=== PATIENT | female | born 1965 | race Caucasian/White ===

== ENCOUNTER 2023-02-21 21:48 | Inpatient (IN) | payer OTHER ==
[2023-02-21 22:16] VITALS: BMI 19.3
[2023-02-21] MEDS ORDERED: IBUPROFEN 400 MG TABLET (FP) PO PRN (23:01)
[2023-02-21] MEDS ORDERED: MAG HYDROX/AL HYDROX/SIMETH 30 ML UNIT-DOSE CUP PO PRN (23:01)
[2023-02-21] MEDS ORDERED: ONDANSETRON *ODT* 4 MG TABLET SL PRN (23:01)
[2023-02-21] MEDS ORDERED: BENZOCAINE/MENTHOL (CHLORASEPTIC ) LOZENGE MM PRN (23:01)
[2023-02-21] MEDS ORDERED: IBUPROFEN 600 MG TABLET (FP) PO PRN (23:01)
[2023-02-21] MEDS ORDERED: NICOTINE 10 MG CARTRIDGE (INHALER) IH PRN (23:01)
[2023-02-21] MEDS ORDERED: BISMUTH SUBSALICYLATE 524 MG/30 ML PO PRN (23:01)
[2023-02-21] MEDS ORDERED: NALOXONE HCL 0.4 MG/ML VIAL IM PRN (23:01)
[2023-02-21] MEDS ORDERED: POLYETHYLENE GLYCOL (HEALTHYLAX) 3350 17 GM PACKET PO PRN (23:01)
[2023-02-21] MEDS ORDERED: ACETAMINOPHEN 325 MG TABLET (FP) PO PRN ×2 (23:01)
[2023-02-21] MEDS ORDERED: NALOXONE HCL (KLOXXADO) 8 MG SPRAY NS PRN (23:01)
[2023-02-21] MEDS ORDERED: MAGNESIUM HYDROX 2400MG/30ML ORAL SUSPENSION 30 ML CUP PO PRN (23:01)
[2023-02-21] MEDS ORDERED: LOPERAMIDE HCL 2 MG CAPSULE PO PRN (23:01)
[2023-02-21] MEDS ORDERED: guaiFENesin 600 MG TABLET.ER (FP) PO PRN (23:01)
[2023-02-21] MEDS ORDERED: P-EPHED 60MG/TRIPROLIDI 2.5MG TABLET PO PRN (23:01)
[2023-02-21] MEDS ORDERED: LIDOCAINE 5% TOPICAL PATCH TP PRN (23:01)
[2023-02-21] MEDS ORDERED: BENZONATATE 200 MG CAPSULE PO PRN (23:01)
[2023-02-21] MEDS ORDERED: DICYCLOMINE HCL 10 MG CAPSULE PO PRN (23:01)
[2023-02-22] MEDS: LIDOCAINE PATCH REMOVAL MC SCH ×2 (05:32→23:15)
[2023-02-22] MEDS ORDERED: PRENATAL VITAMINS W/ FOLIC ACID TABLET (FP) PO ONE (11:04)
[2023-02-22] MEDS: PRENATAL VITAMINS W/ FOLIC ACID TABLET (FP) PO SCH (11:04)
[2023-02-22 11:47] LABS: HEMOGLOBIN 10.2 GM/dL (10.7-15.3); MCHC 34.1 g/dl (32.0-36.0); MEAN PLT VOLUME 8.5 fl (7.5-11.1); PLATELET COUNT 222 10^3/uL (134-434); RBC 3.53 M/mm3 (3.60-5.2); RDW 18.4 % (11.6-15.6); WHITE BLOOD COUNT 6.7 K/mm3 (4.0-10.0)
[2023-02-22 11:52] LABS: CALCIUM 9.1 mg/dL (8.5-10.1)
[2023-02-22 11:53] LABS: ALBUMIN 3.3 g/dl (3.4-5.0); BLOOD UREA NITROGEN 33.9 mg/dL (7-18)
[2023-02-22 11:56] LABS: CREATININE 0.9 mg/dL (0.55-1.3)
[2023-02-22 11:57] LABS: BILIRUBIN,TOTAL 1.6 mg/dL (0.2-1)
[2023-02-22 11:58] LABS: TOT PROT 6.4 g/dl (6.4-8.2)
[2023-02-22] MEDS: MELATONIN 5 MG TABLETS PO PRN (23:14)
[2023-02-22] MEDS: THIAMINE HCL 100 MG TABLET (FP) PO SCH (23:14)
[2023-02-23] MEDS: FERROUS SO4 325 MG TABLET (FP) PO SCH (07:04)
[2023-02-23] MEDS: PRENATAL VITAMINS W/ FOLIC ACID TABLET (FP) PO SCH (10:37)
[2023-02-23] MEDS ORDERED: cloNIDine HCL 0.1 MG TABLET PO PRN (14:09)
[2023-02-23] MEDS ORDERED: methaDONE HCL 10 MG TABLET (FOR DETOX USE ONLY) PO ONE (14:11)
[2023-02-23] MEDS: NICOTINE POLACRILEX 2 MG GUM BUC PRN (19:43)
[2023-02-23] MEDS: THIAMINE HCL 100 MG TABLET (FP) PO SCH (22:39)
[2023-02-23] MEDS: MELATONIN 5 MG TABLETS PO PRN (22:39)
[2023-02-23] MEDS: LIDOCAINE PATCH REMOVAL MC SCH (22:39)
[2023-02-24] MEDS: FERROUS SO4 325 MG TABLET (FP) PO SCH (07:19)
[2023-02-24] MEDS: PRENATAL VITAMINS W/ FOLIC ACID TABLET (FP) PO SCH (09:48)
[2023-02-24] MEDS: THIAMINE HCL 100 MG TABLET (FP) PO SCH (22:32)
[2023-02-24] MEDS: MELATONIN 5 MG TABLETS PO PRN (22:32)
[2023-02-24] MEDS: LIDOCAINE PATCH REMOVAL MC SCH (22:33)
[2023-02-25] MEDS: FERROUS SO4 325 MG TABLET (FP) PO SCH (07:01)
[2023-02-25] MEDS ORDERED: methaDONE HCL 10 MG TABLET (FOR DETOX USE ONLY) PO ONE (10:00)
[2023-02-25] MEDS: PRENATAL VITAMINS W/ FOLIC ACID TABLET (FP) PO SCH (10:37)
[2023-02-25] MEDS: THIAMINE HCL 100 MG TABLET (FP) PO SCH (22:51)
[2023-02-25] MEDS: MELATONIN 5 MG TABLETS PO PRN (22:52)
[2023-02-25] MEDS: LIDOCAINE PATCH REMOVAL MC SCH (22:53)
[2023-02-26] MEDS: FERROUS SO4 325 MG TABLET (FP) PO SCH (07:12)
[2023-02-26] MEDS: PRENATAL VITAMINS W/ FOLIC ACID TABLET (FP) PO SCH (09:07)
[2023-02-26] MEDS: NICOTINE POLACRILEX 2 MG GUM BUC PRN (09:10)
[2023-02-26 09:38] VITALS: BP 124/77; PULSE 78; RESP 16; TEMP 97.8
== END 2023-02-26 09:43 | disposition home or self-care (01) | DRG 773 ==
LOC: YASAS 21:48 → Y6N 02-22 16:21 → UNDOADMIN 02-22 16:21 → Y6N 02-25 21:16
PROVIDERS: ADMIT Allergy & Immunology; ATTEND Psychiatry & Neurology Pain Medicine
PROC: HZ2ZZZZ Detoxification Services for Substance Abuse Treatment (ICD-10-PCS; principal; 2023-02-22)
DX: F11.23 Opioid dependence with withdrawal (principal); F10.230 Alcohol dependence with withdrawal, uncomplicated; F17.210 Nicotine dependence, cigarettes, uncomplicated; Z99.89 Dependence on other enabling machines and devices; Z28.310 Unvaccinated for COVID-19; Z28.9 Immunization not carried out for unspecified reason
CPT/HCPCS: 36415; 80053; 85027; 86780; 87811; C9803-CS; U0003; U0005

== ENCOUNTER 2024-08-01 17:21 | Inpatient (IN) | payer OTHER ==
[2024-08-01 18:57] VITALS: BMI 25.2
[2024-08-01] MEDS ORDERED: ACETAMINOPHEN 325 MG TABLET (FP) PO PRN (19:54)
[2024-08-01] MEDS ORDERED: MAG HYDROX/AL HYDROX/SIMETH 30 ML UNIT-DOSE CUP PO PRN (19:54)
[2024-08-01] MEDS ORDERED: BENZOCAINE/MENTHOL (CHLORASEPTIC ) LOZENGE MM PRN (19:54)
[2024-08-01] MEDS ORDERED: LOPERAMIDE HCL 2 MG CAPSULE PO PRN (19:54)
[2024-08-01] MEDS ORDERED: POLYETHYLENE GLYCOL (HEALTHYLAX) 3350 17 GM PACKET PO PRN (19:54)
[2024-08-01] MEDS ORDERED: MAGNESIUM HYDROX 2400MG/30ML ORAL SUSPENSION 30 ML CUP PO PRN (19:54)
[2024-08-01] MEDS ORDERED: BENZONATATE 200 MG CAPSULE PO PRN (19:54)
[2024-08-01] MEDS ORDERED: guaiFENesin 600 MG TABLET.ER (FP) PO PRN (19:54)
[2024-08-01] MEDS ORDERED: NICOTINE POLACRILEX 2 MG GUM BUC PRN (19:54)
[2024-08-01] MEDS ORDERED: ONDANSETRON *ODT* 4 MG TABLET SL PRN (19:54)
[2024-08-01] MEDS ORDERED: NALOXONE (NARCAN) HCL 4 MG/0.1 ML SPRAY NS PRN (19:54)
[2024-08-01] MEDS ORDERED: NALOXONE HCL 0.4 MG/ML VIAL IM PRN (19:54)
[2024-08-01] MEDS ORDERED: IBUPROFEN 400 MG TABLET (FP) PO PRN (19:54)
[2024-08-01] MEDS ORDERED: BISMUTH SUBSALICYLATE 524 MG/30 ML PO PRN (19:54)
[2024-08-01] MEDS ORDERED: IBUPROFEN 600 MG TABLET (FP) PO PRN (19:54)
[2024-08-01] MEDS: MELATONIN 5 MG TABLETS PO SCH (21:25)
[2024-08-01] MEDS: THIAMINE 100 MG TABLET PO SCH (21:25)
[2024-08-02] MEDS: PRENATAL VITAMINS W/ FOLIC ACID TABLET (FP) PO SCH (09:32)
[2024-08-02 10:01] LABS: HEMOGLOBIN 11.9 GM/dL (10.7-15.3); MEAN CELL VOLUME 82.6 fl (80-96); MEAN PLT VOLUME 9.6 fl (7.5-11.1); PLATELET COUNT 155 10^3/uL (134-434); RBC 4.24 M/mm3 (3.60-5.2); RDW 14.9 % (11.6-15.6); WHITE BLOOD COUNT 6.2 K/mm3 (4.0-10.0)
[2024-08-02 10:02] LABS: POTASSIUM 3.5 mmol/L (3.5-5.1)
[2024-08-02 10:08] LABS: CALCIUM 8.7 mg/dL (8.5-10.1)
[2024-08-02 10:09] LABS: ALBUMIN 2.9 g/dl (3.4-5.0); BLOOD UREA NITROGEN 11.8 mg/dL (7-18)
[2024-08-02 10:12] LABS: CREATININE 0.6 mg/dL (0.55-1.3)
[2024-08-02 10:13] LABS: TOT PROT 5.8 g/dl (6.4-8.2)
[2024-08-02 10:48] LABS: BILIRUBIN,TOTAL 0.6 mg/dL (0.2-1)
[2024-08-03] MEDS: cloNIDine HCL 0.1 MG TABLET PO PRN (15:48)
[2024-08-03] MEDS: amLODIPine BESYLATE 10 MG TABLET (FP) PO SCH (17:09)
[2024-08-04] MEDS: LISINOPRIL 10 MG TABLET PO SCH (13:39)
[2024-08-05 12:57] VITALS: BP 136/89; PULSE 72; RESP 16; TEMP 97.3
== END 2024-08-05 13:05 | disposition other institution (70) | DRG 773 ==
LOC: YASAS 17:21 → Y3N 20:43
PROVIDERS: ADMIT Allergy & Immunology; ATTEND Surgery
PROC: HZ2ZZZZ Detoxification Services for Substance Abuse Treatment (ICD-10-PCS; principal; 2024-08-01)
DX: F11.20 Opioid dependence, uncomplicated (principal); F17.210 Nicotine dependence, cigarettes, uncomplicated; I10 Essential (primary) hypertension; M41.85 Other forms of scoliosis, thoracolumbar region; Z99.3 Dependence on wheelchair
CPT/HCPCS: 36415; 80053; 80305; 80307; 85027; 86780; 87811; 93005; 93010

== ENCOUNTER 2024-08-05 13:19 | Inpatient (IN) | payer OTHER ==
[2024-08-05] MEDS ORDERED: ACETAMINOPHEN 325 MG TABLET (FP) PO PRN (16:24)
[2024-08-05] MEDS ORDERED: IBUPROFEN 600 MG TABLET (FP) PO PRN (16:24)
[2024-08-05] MEDS ORDERED: guaiFENesin 600 MG TABLET.ER (FP) PO PRN (16:24)
[2024-08-05] MEDS ORDERED: NALOXONE HCL 0.4 MG/ML VIAL IVPUSH PRN (16:24)
[2024-08-05] MEDS ORDERED: NALOXONE (NARCAN) HCL 4 MG/0.1 ML SPRAY NS PRN (16:24)
[2024-08-05] MEDS ORDERED: IBUPROFEN 400 MG TABLET (FP) PO PRN (16:24)
[2024-08-05] MEDS ORDERED: BENZOCAINE/MENTHOL (CHLORASEPTIC ) LOZENGE MM PRN (16:24)
[2024-08-05] MEDS ORDERED: MAG HYDROX/AL HYDROX/SIMETH 30 ML UNIT-DOSE CUP PO PRN (16:24)
[2024-08-05] MEDS ORDERED: MAGNESIUM HYDROX 2400MG/30ML ORAL SUSPENSION 30 ML CUP PO PRN (16:24)
[2024-08-05] MEDS ORDERED: LOPERAMIDE HCL 2 MG CAPSULE PO PRN (16:24)
[2024-08-05] MEDS ORDERED: BENZONATATE 200 MG CAPSULE PO PRN (16:24)
[2024-08-05] MEDS ORDERED: POLYETHYLENE GLYCOL (HEALTHYLAX) 3350 17 GM PACKET PO PRN (16:24)
[2024-08-05] MEDS ORDERED: NICOTINE POLACRILEX 2 MG LOZENGE BC PRN (16:32)
[2024-08-05] MEDS ORDERED: NICOTINE POLACRILEX 2 MG GUM BUC PRN (16:32)
[2024-08-05] MEDS ORDERED: NICOTINE 14 MG/24 HOURS TOPICAL PATCH TD PRN (16:35)
[2024-08-05] MEDS: NALOXONE (NARCAN) HCL 4 MG/0.1 ML SPRAY NS SCH (17:15)
[2024-08-05] MEDS: MELATONIN 5 MG TABLETS PO SCH (21:21)
[2024-08-05] MEDS: THIAMINE 100 MG TABLET PO SCH (21:21)
[2024-08-06] MEDS ORDERED: NICOTINE 14 MG/24 HOURS TOPICAL PATCH TD SCH (10:00)
[2024-08-06] MEDS: amLODIPine BESYLATE 10 MG TABLET (FP) PO SCH (10:41)
[2024-08-06] MEDS: LISINOPRIL 10 MG TABLET PO SCH (10:41)
[2024-08-06] MEDS: PRENATAL VITAMINS W/ FOLIC ACID TABLET (FP) PO SCH (10:41)
[2024-08-06] MEDS: ACAMPROSATE CALCIUM 333 MG TABLET.DR PO SCH (14:21)
[2024-08-07] MEDS: hydrOXYzine PAMOATE 25 MG CAPSULE (FP) PO PRN (03:08)
[2024-08-07] MEDS: BACLOFEN 10 MG TABLET (FP) PO SCH (16:01)
[2024-08-10] MEDS ORDERED: NICOTINE 14 MG/24 HOURS TOPICAL PATCH TD PRN (13:59)
[2024-08-10] MEDS ORDERED: AMMONIUM LACTATE 12% LOTION 225 GM BOTTLE TP PRN (14:05)
[2024-08-10] MEDS: NALTREXONE HCL 50 MG TABLET PO ONE (14:57)
[2024-08-11] MEDS: METHOCARBAMOL 500 MG TABLET PO PRN (02:56)
[2024-08-11] MEDS: LISINOPRIL 20 MG TABLET PO SCH (10:35)
[2024-08-11] MEDS: NALTREXONE HCL 50 MG TABLET PO SCH (10:35)
[2024-08-19] MEDS: NALTREXONE MICROSPHERES (VIVITROL) 380 MG DISP.SYRIN IM ONE (10:28)
[2024-08-20 07:07] VITALS: PULSE 71; RESP 18; TEMP 97.2
[2024-08-20 07:24] VITALS: BP 136/89
[2024-08-20] MEDS: NALTREXONE HCL 50 MG TABLET PO SCH (09:59)
== END 2024-08-20 11:48 | disposition home or self-care (01) | DRG 772 ==
LOC: YASAS 13:19 → Y5N 13:21
PROVIDERS: ADMIT Psychiatry & Neurology Pain Medicine; ATTEND Psychiatry & Neurology Pain Medicine
PROC: HZ42ZZZ Group Counseling for Substance Abuse Treatment, Cognitive-Behavioral (ICD-10-PCS; principal; 2024-08-05)
DX: F11.20 Opioid dependence, uncomplicated (principal); F10.20 Alcohol dependence, uncomplicated; F17.210 Nicotine dependence, cigarettes, uncomplicated; I10 Essential (primary) hypertension; Z87.442 Personal history of urinary calculi; Z99.3 Dependence on wheelchair; Z59.01 Sheltered homelessness; Z56.0 Unemployment, unspecified
CPT/HCPCS: J0475